=== PATIENT | female | born 1955 | race Caucasian/White ===

== ENCOUNTER 2021-02-14 10:23 | Outpatient (REF) | payer MEDICARE, SELFPAY ==
[2021-02-14 11:33] LABS: Alanine Aminotransferase 19 U/L (0-31); Albumin Level 4.2 g/dL (3.5-5.0); Alkaline Phosphatase 81 U/L (39-117); Aspartate Amino Transferase 20 U/L (5-31); Bilirubin Direct < 0.2 mg/dL (0.0-0.5); Bilirubin Total 0.4 mg/dL (0.0-1.0); Cholesterol 170 mg/dL; HDL Cholesterol 41 mg/dL; LDL Cholesterol Calculated 81 mg/dl; Total Protein 6.5 g/dL (6.5-8.0); Triglycerides 244 mg/dL
[2021-02-14 12:15] LABS: Anion Gap 15 (12-20); Blood Urea Nitrogen 15 mg/dL (9-16); Calcium 9.5 mg/dL (8.4-10.2); Carbon Dioxide 27 mmol/L (22-29); Chloride 106 mmol/L (96-108); Estimated Glomerular Filt Rate > 60; Glucose Fasting 104 mg/dL (60-99); Potassium 4.9 mmol/L (3.3-5.1); Sodium 143 mmol/L (135-145)
[2021-02-14 12:36] LABS: Vitamin D 25-OH Total 125.7 ng/mL (>30)
[2021-02-14 13:11] LABS: Reflex LDLD? No
== END 2021-02-14 10:24 | disposition home or self-care (01) ==
LOC: HO.LNP 10:23
PROVIDERS: Visit Provider Internal Medicine
DX: E78.00 Pure hypercholesterolemia, unspecified (principal); D72.820 Lymphocytosis (symptomatic); I10 Essential (primary) hypertension; E55.9 Vitamin D deficiency, unspecified
CPT/HCPCS: 80053; 80061; 80076; 82248; 82306

== ENCOUNTER 2021-02-16 10:40 | Outpatient (REF) | payer MEDICARE, SELFPAY ==
[2021-02-16 10:44] LABS: MANUAL DIFF FLAG NO
[2021-02-16 10:55] LABS: Basophils Percent Auto 0.4 % (0-2); Eosinophils Absolute Auto 0.2 X10*3/uL (0.0-0.4); Hematocrit 38.3 % (37-47); Hemoglobin 12.7 g/dl (12.0-16.0); Imm Gran Abs Auto 0.01 X10*3/uL (0.00-0.03); Imm Gran Pct Auto 0.2 % (0.0-0.4); Lymphocytes Absolute Auto 1.8 X10*3/uL (1.2-4.9); Lymphocytes Percent Auto 37.7 % (20-40); Mean Corpuscular HGB Conc 33.2 g/dl (31.0-35.0); Mean Corpuscular Hemoglobin 32.1 pg (27.0-33.0); Mean Corpuscular Volume 96.7 fL (80-98); Mean Platelet Volume 10.2 fL (9.4-12.3); Monocytes Absolute Auto 0.5 X10*3/uL (0.1-1.2); Monocytes Percent Auto 10.4 % (2-11); Neutrophils Absolute Auto 2.2 X10*3/uL (2.0-8.3); Neutrophils Percent Auto 46.3 % (45-73); Platelet Count 226 X10*3/uL (160-400); Red Blood Count 3.96 X10*6/uL (4.20-5.50); Red Cell Distribution Width 12.1 % (11.0-16.0); White Blood Count 4.8 X10*3/uL (4.8-10.8)
== END 2021-02-16 10:41 | disposition home or self-care (01) ==
LOC: HO.LNP 10:40
PROVIDERS: Visit Provider Internal Medicine
DX: D72.820 Lymphocytosis (symptomatic) (principal)
CPT/HCPCS: 85025

== ENCOUNTER 2021-10-27 10:34 | Outpatient (REF) | payer MEDICARE, SELFPAY ==
[2021-10-27 10:39] LABS: MANUAL DIFF FLAG NO
[2021-10-27 11:14] LABS: Appearance Urine CLEAR; Color Urine YELLOW; Glucose Urine UA NEG (NEG); Leukocyte Esterase Urine NEG (NEG); Nitrite Urine NEG (NEG); PH 5.5 (5.0-8.0); Specific Gravity - Urine >= 1.030 (1.005-1.025); Urine Blood NEG (NEG); Urine Ketones NEG (NEG); Urine Protein NEG (NEG-TRACE)
[2021-10-27 11:16] LABS: Basophils Percent Auto 0.7 % (0-2); Eosinophils Absolute Auto 0.4 X10*3/uL (0.0-0.4); Eosinophils Percent Auto 6.7 % (0-4); Hemoglobin 13.3 g/dl (12.0-16.0); Imm Gran Abs Auto 0.01 X10*3/uL (0.00-0.03); Imm Gran Pct Auto 0.2 % (0.0-0.4); Lymphocytes Absolute Auto 2.7 X10*3/uL (1.2-4.9); Lymphocytes Percent Auto 49.9 % (20-40); Mean Corpuscular HGB Conc 33.3 g/dl (31.0-35.0); Mean Corpuscular Hemoglobin 33.4 pg (27.0-33.0); Mean Corpuscular Volume 100.5 fL (80.0-98.0); Mean Platelet Volume 10.3 fL (9.4-12.3); Monocytes Absolute Auto 0.6 X10*3/uL (0.1-1.2); Monocytes Percent Auto 10.7 % (2-11); Neutrophils Absolute Auto 1.7 x10*3/uL (2.0-8.3); Neutrophils Percent Auto 31.8 % (45-73); Platelet Count 247 X10*3/uL (160-400); Red Blood Count 3.98 X10*6/uL (4.20-5.50); Red Cell Distribution Width 12.5 % (11.0-16.0); White Blood Count 5.5 X10*3/uL (4.8-10.8)
[2021-10-27 11:22] LABS: Alanine Aminotransferase 14 U/L (0-31); Albumin Level 4.2 g/dL (3.5-5.0); Alkaline Phosphatase 89 U/L (39-117); Anion Gap 11 (12-20); Aspartate Amino Transferase 18 U/L (5-31); Bilirubin Total 0.4 mg/dL (0.0-1.0); Blood Urea Nitrogen 17 mg/dL (9-16); Calcium 9.7 mg/dL (8.4-10.2); Carbon Dioxide 30 mmol/L (22-29); Chloride 104 mmol/L (96-108); Cholesterol 147 mg/dL; Estimated Glomerular Filt Rate > 60; Glucose Fasting 105 mg/dL (60-99); HDL Cholesterol 39 mg/dL; LDL Cholesterol Calculated 77 mg/dl; Potassium 4.7 mmol/L (3.3-5.1); Sodium 140 mmol/L (135-145); Total Protein 6.4 g/dL (6.5-8.0); Triglycerides 157 mg/dL
[2021-10-27 11:37] LABS: Bacteria Urine 1+ /LPF; Squamous Epithelial Cell Urine 1+ /LPF
[2021-10-27 11:38] LABS: RBC Urine 0 /HPF (0); WBC Urine 0-2 /HPF (0-4)
[2021-10-27 11:43] LABS: Vitamin D 25-OH Total 112.8 ng/mL (>30)
== END 2021-10-27 10:35 | disposition home or self-care (01) ==
LOC: HO.LNP 10:34
PROVIDERS: Visit Provider Internal Medicine
DX: Z00.00 Encounter for general adult medical examination without abnormal findings (principal); E78.00 Pure hypercholesterolemia, unspecified; D72.820 Lymphocytosis (symptomatic); E55.9 Vitamin D deficiency, unspecified; I10 Essential (primary) hypertension
CPT/HCPCS: 80053; 80061; 81001; 82306; 85025

== ENCOUNTER 2022-02-05 11:33 | Outpatient (REF) | payer MEDICARE, SELFPAY ==
[2022-02-05 11:35] LABS: MANUAL DIFF FLAG NO
[2022-02-05 12:10] LABS: Basophils Absolute Auto 0.1 X10*3/uL (0.0-0.2); Basophils Percent Auto 0.8 % (0-2); Eosinophils Absolute Auto 0.4 X10*3/uL (0.0-0.4); Eosinophils Percent Auto 7.1 % (0-4); Hematocrit 41.1 % (37.0-47.0); Hemoglobin 13.7 g/dl (12.0-16.0); Imm Gran Abs Auto 0.01 X10*3/uL (0.00-0.03); Imm Gran Pct Auto 0.2 % (0.0-0.4); Lymphocytes Absolute Auto 3.2 X10*3/uL (1.2-4.9); Lymphocytes Percent Auto 50.6 % (20-40); Mean Corpuscular HGB Conc 33.3 g/dl (31.0-35.0); Mean Corpuscular Hemoglobin 32.5 pg (27.0-33.0); Mean Corpuscular Volume 97.6 fL (80.0-98.0); Mean Platelet Volume 10.9 fL (9.4-12.3); Monocytes Absolute Auto 0.6 X10*3/uL (0.1-1.2); NRBC Pct Auto 0.5 /100WBC (0.0-0.2); Neutrophils Percent Auto 32.3 % (45-73); Platelet Count 240 X10*3/uL (160-400); Red Blood Count 4.21 X10*6/uL (4.20-5.50); Red Cell Distribution Width 12.6 % (11.0-16.0); White Blood Count 6.2 X10*3/uL (4.8-10.8)
[2022-02-05 12:37] LABS: Vitamin D 25-OH Total 82.6 ng/mL (>30)
== END 2022-02-05 11:34 | disposition home or self-care (01) ==
LOC: HO.LNP 11:33
PROVIDERS: Visit Provider Internal Medicine
DX: E55.9 Vitamin D deficiency, unspecified (principal); D72.820 Lymphocytosis (symptomatic)
CPT/HCPCS: 82306; 85025

== ENCOUNTER 2022-11-27 11:09 | Outpatient (REF) | payer MEDICARE, SELFPAY ==
[2022-11-27 11:12] LABS: MANUAL DIFF FLAG NO
[2022-11-27 11:27] LABS: Appearance Urine Clear; Color Urine Yellow; Glucose Urine UA Negative (Negative); Leukocyte Esterase Urine Negative (Negative); Nitrite Urine Negative (Negative); PH 5.5 (5.0-9.0); Specific Gravity - Urine 1.015 (1.005-1.025); UMIC TRIGGER UACC YES; Urine Blood Trace (Negative); Urine Ketones Negative (Negative); Urine Protein Negative (Neg-Trace)
[2022-11-27 11:28] LABS: Basophils Absolute Auto 0.1 X10*3/uL (0.0-0.2); Basophils Percent Auto 0.9 % (0-2); Eosinophils Absolute Auto 0.6 X10*3/uL (0.0-0.4); Eosinophils Percent Auto 7.7 % (0-4); Hematocrit 40.9 % (37.0-47.0); Hemoglobin 12.9 g/dl (12.0-16.0); Imm Gran Abs Auto 0.02 X10*3/uL (0.00-0.03); Imm Gran Pct Auto 0.3 % (0.0-0.4); Lymphocytes Absolute Auto 2.9 X10*3/uL (1.2-4.9); Lymphocytes Percent Auto 38.8 % (20-40); Mean Corpuscular HGB Conc 31.5 g/dl (31.0-35.0); Mean Corpuscular Hemoglobin 30.4 pg (27.0-33.0); Mean Corpuscular Volume 96.2 fL (80.0-98.0); Mean Platelet Volume 10.5 fL (9.4-12.3); Monocytes Absolute Auto 0.9 X10*3/uL (0.1-1.2); Monocytes Percent Auto 12.4 % (2-11); Neutrophils Percent Auto 39.9 % (45-73); Platelet Count 270 X10*3/uL (160-400); Red Blood Count 4.25 X10*6/uL (4.20-5.50); Red Cell Distribution Width 13.7 % (11.0-16.0); White Blood Count 7.4 X10*3/uL (4.8-10.8)
[2022-11-27 11:30] LABS: Bacteria Urine None Seen (None Seen); Hyaline Casts Urine 0-2 /LPF (0-2); RBC Urine 0-2 /HPF (0-2); Squamous Epithelial Cell Urine 0-2 /HPF (0-2); WBC Urine 0-5 /HPF (0-5)
[2022-11-27 11:43] LABS: Alanine Aminotransferase 14 U/L (0-31); Alkaline Phosphatase 128 U/L (39-117); Anion Gap 11 (12-20); Aspartate Amino Transferase 17 U/L (5-31); Bilirubin Total 0.5 mg/dL (0.0-1.0); Blood Urea Nitrogen 18 mg/dL (9-16); Calcium 9.2 mg/dL (8.4-10.2); Carbon Dioxide 29 mmol/L (22-29); Chloride 105 mmol/L (96-108); Cholesterol 166 mg/dL; Estimated Glomerular Filt Rate > 60; Glucose Fasting 104 mg/dL (60-99); HDL Cholesterol 40 mg/dL; LDL Cholesterol Calculated 70 mg/dl; Potassium 4.6 mmol/L (3.3-5.1); Sodium 140 mmol/L (135-145); Total Protein 6.9 g/dL (6.5-8.0); Triglycerides 280 mg/dL
== END 2022-11-27 11:10 | disposition home or self-care (01) ==
LOC: HO.LNP 11:09
PROVIDERS: Visit Provider Internal Medicine
DX: Z00.00 Encounter for general adult medical examination without abnormal findings (principal); E78.00 Pure hypercholesterolemia, unspecified; I10 Essential (primary) hypertension; D72.820 Lymphocytosis (symptomatic)
CPT/HCPCS: 80053; 80061; 81001; 85025

== ENCOUNTER → 2023-02-07 07:38 | Outpatient (REF) | payer MEDICARE, SELFPAY ==
--- NOTE | 2023-02-07 | CA_ITS ---
Acquisition Time: 2023-02-07 07:53:33 Total Exercise Time: 00:06:09 Test Indications: Dyspnea Medications: OMEPRAZOLE PROPRANOLOL ATORVASTATIN ESCITALOPRAM Protocol: ENRIQUE Max HR: 166 BPM 109% of Pred: 151 BPM Max BP: 144/078 mmHG Max Work Load: 7.2 METS Exercise stress test exercise 6 min 9 sec of Enrique protocol achieving 102% MPHR without anginal symptoms, with PVCs in pretest and recovery, with normotensive response to exercise, without EKG chnages. Test reiewed with Dr. Centeno Referred By: Reji Fountain Overread By: Soraida Bocanegra
== END ==
LOC: HO.CARD 07:38
PROVIDERS: PCP Internal Medicine; Visit Provider Internal Medicine
DX: R06.02 Shortness of breath (principal)
CPT/HCPCS: 93017

== ENCOUNTER → 2023-02-07 07:53 | Outpatient (BNV) | payer MEDICARE, SELFPAY | PROVIDERS: PCP Internal Medicine; Visit Provider Nurse Practitioner | DX: R06.09 Other forms of dyspnea (principal) | CPT/HCPCS: 93016; 93018 ==

== ENCOUNTER 2023-02-20 07:36 | Outpatient (REF) | payer MEDICARE, SELFPAY ==
--- NOTE | ~2023-02-20 | FL_ITS ---
EXAMINATION: XR FLUOROSCOPY UPPER GI WITH AIR CLINICAL INFORMATION: Patient complaining of food getting stuck in region of hypopharynx episodically. COMPARISON: None available. TECHNIQUE: Fluoroscopic air-contrast upper GI examination was performed utilizing standard technique with thin and thick barium as well as effervescent granules. Numerous fluoroscopic spot images were obtained. FINDINGS: Imaging of the oropharynx and hypopharynx during swallow demonstrates no evidence of laryngeal penetration or aspiration. There was mild pooling in the vallecula which cleared upon subsequent swallows. No definite mass is identified within the hypopharynx. A moderate size Zenker's diverticulum is noted projecting off the posterior aspect of the most upper esophagus at the C6-7 level, in which barium pooled consistently. The esophagus has a normal caliber without evidence of stricture or mass lesion. Mucosal pattern was normal aside from episodic feline fold pattern, which was transient. On image 9 of 24 on series 3, in the mid to distal anterior esophagus, a small rounded filling defect is felt to represent artifact from effervescent granules. It did not appear to persist. Esophageal peristalsis was somewhat disordered, with primary propulsive contraction followed by numerous tertiary nonpropulsive contractions consistent with presbyesophagus. A moderate-sized type I hiatus hernia is present at the GE junction. Episodic spontaneous gastroesophageal reflux is identified at numerous points throughout the exam to the level of the justin. Dual contrast and single column contrast images of the stomach demonstrated normal contour without evidence of mass or gastric fold thickening. No delay of contrast passage into the duodenum. 2 sequential ventral images demonstrate possible small gastric ulcerations within the posterior body. Unknown if this represents artifact. The duodenal bulb has a normal appearance. The duodenal sweep demonstrates a tiny superior diverticulum in the fourth segment. The proximal jejunum has a normal fold pattern and caliber. Incidentally noted is a marked dextroconvex thoracolumbar scoliosis. FLUOROSCOPY TIME: 4.5 minutes. 44 spot images obtained. DOSE : 162.968 mGy FL/FL upper GI w air IMPRESSION: 1. Small to moderate-sized Zenker's diverticulum at the C6-C7 level. No evidence of laryngeal penetration or aspiration. 2. Feline esophagus noted, which can be associated with reflux. Episodic gastroesophageal reflux noted throughout the examination to the level of the justin. Esophagus otherwise grossly normal aside from moderate presbyesophagus. 3. Moderate-sized sliding hiatus hernia. 4. Possible small ulcerations in the posterior body of the stomach. Erosive gastritis is a consideration. No additional stomach abnormality. 5. Essentially normal duodenal bulb, duodenal sweep, and proximal small bowel.
== END 2023-02-20 07:37 | disposition home or self-care (01) ==
LOC: HO.XRAY 07:36
PROVIDERS: PCP Internal Medicine; Visit Provider Internal Medicine
DX: R13.10 Dysphagia, unspecified (principal)
CPT/HCPCS: 74240; 74246

== ENCOUNTER → 2023-02-20 07:37 | Outpatient (BNV) | payer MEDICARE, SELFPAY | PROVIDERS: PCP Internal Medicine; Visit Provider Radiology Diagnostic Radiology | DX: R13.10 Dysphagia, unspecified (principal) | CPT/HCPCS: 74246 ==

== ENCOUNTER 2023-04-12 14:20 | Emergency (ER) | payer MEDICARE, SELFPAY ==
--- NOTE | ~2023-04-12 | XR_ITS ---
EXAMINATION: XR HAND, LEFT CLINICAL INFORMATION: Left ring finger pain. COMPARISON: None available. TECHNIQUE: PA, lateral, and oblique views of the left hand. FINDINGS: Mildly displaced comminuted fracture of the distal tuft distal phalanx of ring finger. No dislocation. XR/XR hand LT min 3V IMPRESSION: Mildly displaced comminuted fracture of the distal tuft distal phalanx of ring finger.
--- NOTE | ~2023-04-12 | CT_ITS ---
EXAMINATION: CT HEAD WITHOUT CONTRAST CT FACIAL BONES WITHOUT CONTRAST CT CERVICAL SPINE WITHOUT CONTRAST CLINICAL INFORMATION: Fall. Head and face strike. Neck pain. COMPARISON: None available. TECHNIQUE: Imaging was performed from the skull base to vertex without intravenous administration of contrast. In addition, helical noncontrast CT imaging was acquired through the cervical spine and facial bones and source images were reviewed along with axial reconstructions and sagittal and coronal MPRs. This CT examination was performed using dose optimization techniques as appropriate, variously including the following: *Automated exposure control. *Adjustment of mA and/or kV according to patient size (this includes techniques or standardized protocols for targeted exams where dose is matched to indication/reason for exam; i.e. extremities or head). *Use of iterative reconstruction technique. DLP: 1299 mGy-cm FINDINGS: Head: There is no evidence of acute intracranial hemorrhage or edematous territorial infarction. Antoine-white matter differentiation is preserved. Scattered and partially confluent hypoattenuation in the periventricular and deep white matter are consistent with moderate microangiopathy. Proportional prominence of the ventricles and sulcal spaces without evidence of obstructive hydrocephalus. No abnormal mass effect or midline shift. No extra-axial fluid collections. Moderate laceration and subgaleal hematoma along the right aspect of the frontal bone, measuring up to 0.4 cm in depth. No associated acute osseous calvarial abnormalities. Maxillofacial Bones: No evidence of maxillofacial bone fractures. The zygomatic arches remain intact. No nasal bone fracture. The nasal septum remains midline. No evidence of mandibular or maxillary fracture. The mandibular condyles remain well-seated in their respective temporal articular grooves. Mild degenerative arthropathy of the temporomandibular joints bilaterally. Normal appearance of the intraconal and extraconal fat. No evidence of traumatic injury to the extraocular musculature or globes. Complete opacification of the right maxillary sinus. Moderate mucosal thickening of the left maxillary sinus. Hyperattenuating material centrally within the maxillary sinuses. Mild mucosal thickening of the remaining paranasal sinuses. No layering fluid collections. Cervical Spine: The atlantooccipital and atlantoaxial articulations remain well aligned. Moderate degenerative arthropathy of the atlantodental articulation. Straightening of the normal cervical lordosis. Otherwise, there is anatomic alignment of the vertebral bodies and posterior elements. No evidence of acute fracture or subluxation. The vertebral body heights are maintained. Advanced degenerative disc disease at C5-C6. Moderate degenerative disc disease at all additional cervical levels. Facet and uncovertebral joint arthropathy leads to osseous encroachment on the neural foramina from C3-C7. There is no prevertebral soft tissue swelling. There is a mucous and gas filled pouch posterior to the esophagus at the level of C5-C7 suggestive of a Zenker's diverticulum, measuring 2.3 x 1.3 x 2.5 cm. The thyroid gland and remaining cervical soft tissues are within normal limits. The lung apices demonstrate no abnormalities. CT/CT cervical spine wo IV con IMPRESSION: 1. No evidence of acute intracranial hemorrhage or edematous territorial infarction. Moderate underlying microangiopathy and generalized cerebral volume loss. 2. No evidence of acute fracture or traumatic subluxation of the cervical spine. Moderate multilevel degenerative spondyloarthropathy of the cervical spine. 3. No evidence of acute fracture of the maxillofacial bones. 4. Right frontal scalp laceration/hematoma without associated osseous calvarial abnormalities. 5. Prominent right-sided and moderate left-sided maxillary sinus disease. Hyperattenuating material within the maxillary sinuses suggestive of chronically inspissated mucus versus sequela of allergic fungal colonization. 6. Zenker's diverticulum.
--- NOTE | ~2023-04-12 | XR_ITS ---
EXAMINATION: XR CHEST CLINICAL INFORMATION: Fall. Chest trauma. COMPARISON: None available. TECHNIQUE: Frontal view of the chest was obtained. 6:17 PM FINDINGS: Lungs are clear. No pulmonary vascular congestion. There is no pleural effusion. The heart size is normal. The cardiac and mediastinal contours are normal. Dextroscoliosis thoracolumbar spine with multilevel degenerative spondylosis. Orthopedic plate and screw over right proximal humerus. XR/XR chest 1V IMPRESSION: Unremarkable examination.
[2023-04-12 14:39] VITALS: BP 130/90; PULSE 90; O2SAT 96; BMI 26.4
[2023-04-12 14:50] VITALS: BP 146/80; PULSE 77; RESP 16; TEMP 37; O2SAT 95
[2023-04-12 14:51] VITALS: BMI 30.3
--- NOTE | 2023-04-12 15:35 | ECG_ITS ---
Test Reason : FALL Blood Pressure : / mmHG Vent. Rate : 077 BPM Atrial Rate : 077 BPM P-R Int : 132 ms QRS Dur : 098 ms QT Int : 392 ms P-R-T Axes : 023 -33 -04 degrees QTc Int : 443 ms Normal sinus rhythm Nonspecific T wave abnormality Left anterior fascicular block Intra-ventricular conduction delay Abnormal ECG No previous ECGs available Referred By: Ladan Olivia Electronically Signed By:LYUDMILA RICO MD
--- NOTE | 2023-04-12 15:40 | ED_ITS ---
HPI - Fall General Chief Complaint: Fall Stated Complaint: fall Time Seen by Provider: 04/12/23 15:00 Source: patient and EMS Mode of arrival: EMS Limitations: no limitations History of Present Illness HPI Narrative: This is a 67 yo f no significant pmhx presenting s/p trip and fall patient states she tripped on a dog bed falling forward, and hitting her face on the ground. Patient reports she also hit her finger on something while she fell she is complaining of left ring finger pain. Patient denies loss of consciousness with fall, not on blood thinners. Patient does state that she has a large laceration to her the right side of her forehead. She came in by ambulance and was collared out of precaution. Patient denies headache, vision changes, dizziness, weakness, nausea, vomiting, chest pain or shortness breath. No preceding symptoms to fall. Related Data Previous Rx's Medication Instructions Recorded cephalexin 500 mg tablet 500 mg PO Q6H 10 days #40 tabs 04/12/23 Allergies Allergy/AdvReac Type Severity Reaction Status Date / Time No Known Allergies Allergy Unverified 03/10/20 16:55 [No Known Allergies*] Review of Systems 2 Review of Systems: Constitutional : No Weight loss, No Fever, No Chills, No Fatigue, No Malaise ENT/Mouth : No sore throat, No Rhinorrhea Eyes: No Eye Pain, No Swelling, No Redness Cardiovascular : No Chest Pain, No SOB, No Dyspnea on Exertion, No Orthopnea, No Edema, No Palpitations Respiratory : No Cough, No Sputum, No Wheezing Gastrointestinal : No Nausea, No Vomiting, No Diarrhea, No Constipation, No abdominal Pain, No Hematochezia, No Melena Genitourinary : No Dysuria, No Urinary Frequency, No Hematuria, Musculoskeletal : + joint pain, No Myalgias, + Joint Swelling Skin : No Skin Lesions, No rash, + laceration Neuro : No Weakness, No Numbness, No Dizziness, No Headache Psych : No Anxiety/Panic, No Depression All other systems reviewed and are negative Yes all other systems are reviewed and are negative [facility]LY [facility] Past Medical History Attestation statement: The following information was validated with the patient. Source: old records reviewed and nursing notes reviewed Social History Social History Advance Directives: No Advance Directives Information Provided: No Physical Exam 2 Vital Signs: Vital Signs: Last Vital Signs Temp 98.6 F 04/12/23 14:50 Pulse 77 04/12/23 14:50 Resp 16 04/12/23 14:50 BP 146/80 H 04/12/23 14:50 Pulse Ox 95 04/12/23 14:50 O2 Del Method Room Air 04/12/23 14:50 BMI result Body Mass Index 30.3 vss Appearance: Alert.? Oriented X3.? No acute distress.? Head: Normocephalic, atraumatic, no step-offs or deformities + linear laceration to the right aspect of patient's forehead measuring approximately 6 cm, no foreign bodies visualized. No signs of skull fractures, no depressions. Eyes: Pupils equal, round and reactive to light.? ENT: Pharynx normal.? Neck: Normal inspection.? Neck supple.? CVS: Normal heart rate and rhythm.? Pulses normal.? Respiratory: No respiratory distress.? Breath sounds normal.? Abdomen: Soft and nontender.? Skin: Skin warm and dry.? Normal skin color.? Normal skin turgor.? Extremities: No lower extremity edema.? No calf ttp. 5/5 strength to bilateral upper and lower extremities patient has ecchymosis to the distal aspect of left ring finger on the fat pad. 2+ radial pulses equal bilateral. Normal capillary refill to all upper extremity digits less than 2 seconds. Full range of motion to all fingers, painless. Back: No midline tenderness, no C-spine tenderness, full range of motion, no CVA tenderness bilaterally Neuro: Oriented X 3.? No motor deficit.? No sensory deficit. CN 2-12 intact Course Reevaluation(s) Reevaluation #1: Patient's laceration was closed with 9 simple interrupted sutures 6 -0 , area was anesthetized with lidocaine, no complications. Imaging pending. Labs and troponin pending. Sign-out to Linda RUIZ Time: 16:44 Reevaluation #2: CT scans negative for any acute processes. left hand x-ray shows mildly displaced fracture of the distal tuft of distal phalanx of ring finger. Body tape. Patient will be sent home Medications Administered Discontinued Medications Generic Name Dose Route Start Last Admin Trade Name Freq PRN Reason Stop Dose Admin Diphtheria/Tetanus/Acell Pertussis 0.5 ml 04/12/23 15:35 04/12/23 16:42 Diphth,Pertus(Acell),Tet Adult 0.5 Ml Syringe IM 04/12/23 15:36 0.5 ml .ONCE ONE Administration Lidocaine HCl 20 ml 04/12/23 15:39 04/12/23 16:42 Lidocaine Hcl 2 % Mpf 5 Ml Vial SUBCUT 04/12/23 15:40 20 ml ONCE ONE Administration Medical Decision Making Medical Decision Making [facility] Narrative: 1543 67-year-old female presents status post trip and fall complaining laceration to head and left ring finger pain. Physical exam with large laceration to the right aspect of forehead, and left ring finger with distal ecchymosis. History and physical exam concerning for concussion without loss of consciousness, low suspicion for intracranial hemorrhage, stroke or posterior stroke. Unlikely skull fracture facial fractures however will rule out with imaging. No point tenderness to cervical spine unlikely cervical spine fracture, dislocation or traumatic subluxations. No signs of cervical myelopathy. Left finger likely sprain or strain will rule out fracture dislocation however. No signs of neurovascular compromise or threat to Abbasi. Will rule out electrolyte derangements and anemia. Will also obtain an EKG and troponin to rule out ACS as positive agent although patient denies chest pain and shortness of breath prior to fall PE and ACS Unlikely Plan- imaging, labs, ekg, trop Differential Diagnosis Differential Diagnoses: The differential diagnosis associated with the presentation includes History and physical exam concerning for concussion without loss of consciousness, low suspicion for intracranial hemorrhage, stroke or posterior stroke. Unlikely skull fracture facial fractures however will rule out with imaging. No point tenderness to cervical spine unlikely cervical spine fracture, dislocation or traumatic subluxations. No signs of cervical myelopathy. Left finger likely sprain or strain will rule out fracture dislocation however. No signs of neurovascular compromise or threat to Abbasi. Will rule out electrolyte derangements and anemia. Will also obtain an EKG and troponin to rule out ACS as positive agent although patient denies chest pain and shortness of breath prior to fall PE and ACS Unlikely Admission/Observation Consideration of admission/observation: Escalation of care including admission/observation considered Lab Data [facility] Lab Attestation statement: I reviewed the patient's lab results. 04/12/23 17:05 04/12/23 17:05 Labs: Lab Results 04/12/23 04/12/23 04/12/23 Range/Units 17:05 17:05 17:05 WBC 8.8 (4.8-10.8) X10*3/uL RBC 4.00 L (4.20-5.50) X10*6/uL Hgb 13.0 (12.0-16.0) g/dl Hct 38.3 (37.0-47.0) % MCV 95.8 (80.0-98.0) fL MCH 32.5 (27.0-33.0) pg MCHC 33.9 (31.0-35.0) g/dl RDW 12.8 (11.0-16.0) % Plt Count 225 (160-400) X10*3/uL MPV 10.0 (9.4-12.3) fL Immature Gran % (Auto) 0.2 (0.0-0.4) % Neut % (Auto) 69.6 (45-73) % Lymph % (Auto) 20.3 (20-40) % [place] % (Auto) 6.1 (2-11) % Eos % (Auto) 3.2 (0-4) % Baso % (Auto) 0.6 (0-2) % Lymph # (Auto) 1.8 (1.2-4.9) X10*3/uL [place] # (Auto) 0.5 (0.1-1.2) X10*3/uL Eos # (Auto) 0.3 (0.0-0.4) X10*3/uL Baso # (Auto) 0.1 (0.0-0.2) X10*3/uL Abs Immat Gran (auto) 0.02 (0.00-0.03) X10*3/uL Absolute Neuts (auto) 6.1 (2.0-8.3) x10*3/uL Absolute Nucleated RBC 0.000 (0.0-0.012) X10*3/uL Nucleated RBC % (auto) 0.0 (0.0-0.2) /100WBC Sodium 139 138 (135-145) mmol/L Potassium 4.1 4.1 (3.3-5.1) mmol/L Chloride 105 (96-108) mmol/L Carbon Dioxide (22-29) mmol/L Anion Gap (12-20) BUN (9-16) mg/dL Creatinine (0.5-1.4) mg/dL Estim Creat Clear Calc Estimated GFR Random Glucose (60-115) mg/dL Calcium (8.4-10.2) mg/dL Magnesium (1.6-2.6) mg/dL Total Bilirubin (0.0-1.0) mg/dL AST (5-31) U/L ALT (0-31) U/L Alkaline Phosphatase (39-117) U/L Troponin I High Sens (<3.5-17.0) ng/L Total Protein (6.5-8.0) g/dL Albumin (3.5-5.0) g/dL 04/12/23 04/12/23 04/12/23 Range/Units 17:05 17:05 17:05 WBC (4.8-10.8) X10*3/uL RBC (4.20-5.50) X10*6/uL Hgb (12.0-16.0) g/dl Hct (37.0-47.0) % MCV (80.0-98.0) fL MCH (27.0-33.0) pg MCHC (31.0-35.0) g/dl RDW (11.0-16.0) % Plt Count (160-400) X10*3/uL MPV (9.4-12.3) fL Immature Gran % (Auto) (0.0-0.4) % Neut % (Auto) (45-73) % Lymph % (Auto) (20-40) % [place] % (Auto) (2-11) % Eos % (Auto) (0-4) % Baso % (Auto) (0-2) % Lymph # (Auto) (1.2-4.9) X10*3/uL [place] # (Auto) (0.1-1.2) X10*3/uL Eos # (Auto) (0.0-0.4) X10*3/uL Baso # (Auto) (0.0-0.2) X10*3/uL Abs Immat Gran (auto) (0.00-0.03) X10*3/uL Absolute Neuts (auto) (2.0-8.3) x10*3/uL Absolute Nucleated RBC (0.0-0.012) X10*3/uL Nucleated RBC % (auto) (0.0-0.2) /100WBC Sodium (135-145) mmol/L Potassium (3.3-5.1) mmol/L Chloride 106 (96-108) mmol/L Carbon Dioxide 23 22 (22-29) mmol/L Anion Gap 15 14 (12-20) BUN 18 H (9-16) mg/dL Creatinine (0.5-1.4) mg/dL Estim Creat Clear Calc Estimated GFR Random Glucose (60-115) mg/dL Calcium (8.4-10.2) mg/dL Magnesium (1.6-2.6) mg/dL Total Bilirubin (0.0-1.0) mg/dL AST (5-31) U/L ALT (0-31) U/L Alkaline Phosphatase (39-117) U/L Troponin I High Sens (<3.5-17.0) ng/L Total Protein (6.5-8.0) g/dL Albumin (3.5-5.0) g/dL 04/12/23 04/12/23 04/12/23 Range/Units 17:05 17:05 17:05 WBC (4.8-10.8) X10*3/uL RBC (4.20-5.50) X10*6/uL Hgb (12.0-16.0) g/dl Hct (37.0-47.0) % MCV (80.0-98.0) fL MCH (27.0-33.0) pg MCHC (31.0-35.0) g/dl RDW (11.0-16.0) % Plt Count (160-400) X10*3/uL MPV (9.4-12.3) fL Immature Gran % (Auto) (0.0-0.4) % Neut % (Auto) (45-73) % Lymph % (Auto) (20-40) % [place] % (Auto) (2-11) % Eos % (Auto) (0-4) % Baso % (Auto) (0-2) % Lymph # (Auto) (1.2-4.9) X10*3/uL [place] # (Auto) (0.1-1.2) X10*3/uL Eos # (Auto) (0.0-0.4) X10*3/uL Baso # (Auto) (0.0-0.2) X10*3/uL Abs Immat Gran (auto) (0.00-0.03) X10*3/uL Absolute Neuts (auto) (2.0-8.3) x10*3/uL Absolute Nucleated RBC (0.0-0.012) X10*3/uL Nucleated RBC % (auto) (0.0-0.2) /100WBC Sodium (135-145) mmol/L Potassium (3.3-5.1) mmol/L Chloride (96-108) mmol/L Carbon Dioxide (22-29) mmol/L Anion Gap (12-20) BUN 18 H (9-16) mg/dL Creatinine 0.77 0.78 (0.5-1.4) mg/dL Estim Creat Clear Calc 62.9 62.1 Estimated GFR > 60 Random Glucose (60-115) mg/dL Calcium (8.4-10.2) mg/dL Magnesium (1.6-2.6) mg/dL Total Bilirubin (0.0-1.0) mg/dL AST (5-31) U/L ALT (0-31) U/L Alkaline Phosphatase (39-117) U/L Troponin I High Sens (<3.5-17.0) ng/L Total Protein (6.5-8.0) g/dL Albumin (3.5-5.0) g/dL 04/12/23 04/12/23 04/12/23 Range/Units 17:05 17:05 17:05 WBC (4.8-10.8) X10*3/uL RBC (4.20-5.50) X10*6/uL Hgb (12.0-16.0) g/dl Hct (37.0-47.0) % MCV (80.0-98.0) fL MCH (27.0-33.0) pg MCHC (31.0-35.0) g/dl RDW (11.0-16.0) % Plt Count (160-400) X10*3/uL MPV (9.4-12.3) fL Immature Gran % (Auto) (0.0-0.4) % Neut % (Auto) (45-73) % Lymph % (Auto) (20-40) % [place] % (Auto) (2-11) % Eos % (Auto) (0-4) % Baso % (Auto) (0-2) % Lymph # (Auto) (1.2-4.9) X10*3/uL [place] # (Auto) (0.1-1.2) X10*3/uL Eos # (Auto) (0.0-0.4) X10*3/uL Baso # (Auto) (0.0-0.2) X10*3/uL Abs Immat Gran (auto) (0.00-0.03) X10*3/uL Absolute Neuts (auto) (2.0-8.3) x10*3/uL Absolute Nucleated RBC (0.0-0.012) X10*3/uL Nucleated RBC % (auto) (0.0-0.2) /100WBC Sodium (135-145) mmol/L Potassium (3.3-5.1) mmol/L Chloride (96-108) mmol/L Carbon Dioxide (22-29) mmol/L Anion Gap (12-20) BUN (9-16) mg/dL Creatinine (0.5-1.4) mg/dL Estim Creat Clear Calc Estimated GFR > 60 Random Glucose 133 H 133 H (60-115) mg/dL Calcium 9.8 D 9.9 (8.4-10.2) mg/dL Magnesium 2.0 (1.6-2.6) mg/dL Total Bilirubin 0.6 (0.0-1.0) mg/dL AST (5-31) U/L ALT (0-31) U/L Alkaline Phosphatase (39-117) U/L Troponin I High Sens (<3.5-17.0) ng/L Total Protein (6.5-8.0) g/dL Albumin (3.5-5.0) g/dL 04/12/23 04/12/23 04/12/23 Range/Units 17:05 17:05 17:05 WBC (4.8-10.8) X10*3/uL RBC (4.20-5.50) X10*6/uL Hgb (12.0-16.0) g/dl Hct (37.0-47.0) % MCV (80.0-98.0) fL MCH (27.0-33.0) pg MCHC (31.0-35.0) g/dl RDW (11.0-16.0) % Plt Count (160-400) X10*3/uL MPV (9.4-12.3) fL Immature Gran % (Auto) (0.0-0.4) % Neut % (Auto) (45-73) % Lymph % (Auto) (20-40) % [place] % (Auto) (2-11) % Eos % (Auto) (0-4) % Baso % (Auto) (0-2) % Lymph # (Auto) (1.2-4.9) X10*3/uL [place] # (Auto) (0.1-1.2) X10*3/uL Eos # (Auto) (0.0-0.4) X10*3/uL Baso # (Auto) (0.0-0.2) X10*3/uL Abs Immat Gran (auto) (0.00-0.03) X10*3/uL Absolute Neuts (auto) (2.0-8.3) x10*3/uL Absolute Nucleated RBC (0.0-0.012) X10*3/uL Nucleated RBC % (auto) (0.0-0.2) /100WBC Sodium (135-145) mmol/L Potassium (3.3-5.1) mmol/L Chloride (96-108) mmol/L Carbon Dioxide (22-29) mmol/L Anion Gap (12-20) BUN (9-16) mg/dL Creatinine (0.5-1.4) mg/dL Estim Creat Clear Calc Estimated GFR Random Glucose (60-115) mg/dL Calcium (8.4-10.2) mg/dL Magnesium (1.6-2.6) mg/dL Total Bilirubin 0.6 (0.0-1.0) mg/dL AST 16 16 (5-31) U/L ALT 11 11 (0-31) U/L Alkaline Phosphatase 92 (39-117) U/L Troponin I High Sens (<3.5-17.0) ng/L Total Protein (6.5-8.0) g/dL Albumin (3.5-5.0) g/dL 04/12/23 04/12/23 04/12/23 Range/Units 17:05 17:05 17:05 WBC (4.8-10.8) X10*3/uL RBC (4.20-5.50) X10*6/uL Hgb (12.0-16.0) g/dl Hct (37.0-47.0) % MCV (80.0-98.0) fL MCH (27.0-33.0) pg MCHC (31.0-35.0) g/dl RDW (11.0-16.0) % Plt Count (160-400) X10*3/uL MPV (9.4-12.3) fL Immature Gran % (Auto) (0.0-0.4) % Neut % (Auto) (45-73) % Lymph % (Auto) (20-40) % [place] % (Auto) (2-11) % Eos % (Auto) (0-4) % Baso % (Auto) (0-2) % Lymph # (Auto) (1.2-4.9) X10*3/uL [place] # (Auto) (0.1-1.2) X10*3/uL Eos # (Auto) (0.0-0.4) X10*3/uL Baso # (Auto) (0.0-0.2) X10*3/uL Abs Immat Gran (auto) (0.00-0.03) X10*3/uL Absolute Neuts (auto) (2.0-8.3) x10*3/uL Absolute Nucleated RBC (0.0-0.012) X10*3/uL Nucleated RBC % (auto) (0.0-0.2) /100WBC Sodium (135-145) mmol/L Potassium (3.3-5.1) mmol/L Chloride (96-108) mmol/L Carbon Dioxide (22-29) mmol/L Anion Gap (12-20) BUN (9-16) mg/dL Creatinine (0.5-1.4) mg/dL Estim Creat Clear Calc Estimated GFR Random Glucose (60-115) mg/dL Calcium (8.4-10.2) mg/dL Magnesium (1.6-2.6) mg/dL Total Bilirubin (0.0-1.0) mg/dL AST (5-31) U/L ALT (0-31) U/L Alkaline Phosphatase 90 (39-117) U/L Troponin I High Sens < 2.7 (<3.5-17.0) ng/L Total Protein 6.9 7.0 (6.5-8.0) g/dL Albumin 4.1 4.2 (3.5-5.0) g/dL Independent Interpretation I performed an independent interpretation of an: EKG, Plain X-Ray and CT Scan Radiology Impression Discussion of test interpretation with radiology: I have reviewed the radiologist's reading. Radiologist Impression: Hand x-ray FINDINGS: Mildly displaced comminuted fracture of the distal tuft distal phalanx of ring finger. No dislocation. XR/XR hand LT min 3V IMPRESSION: Mildly displaced comminuted fracture of the distal tuft distal phalanx of ring finger. CT SCAN OF THE FACE, HEAD, CERVICAL SPINE IMPRESSION: 1. No evidence of acute intracranial hemorrhage or edematous territorial infarction. Moderate underlying microangiopathy and generalized cerebral volume loss. 2. No evidence of acute fracture or traumatic subluxation of the cervical spine. Moderate multilevel degenerative spondyloarthropathy of the cervical spine. 3. No evidence of acute fracture of the maxillofacial bones. 4. Right frontal scalp laceration/hematoma without associated osseous calvarial abnormalities. 5. Prominent right-sided and moderate left-sided maxillary sinus disease. Hyperattenuating material within the maxillary sinuses suggestive of chronically inspissated mucus versus sequela of allergic fungal colonization. 6. Zenker's diverticulum. Independent Historian Clinical information obtained from an independent historian. History obtained from or confirmed by: Friend Critical Care Time Critical Care Time Critical Care Time: No Discharge Plan Discharge Clinical Impression: Concussion without loss of consciousness, Fall, Laceration of head, Finger pain, left Patient Disposition: Home, Self-Care Instructions: Laceration (ED), Concussion (ED), Post Concussion Syndrome (ED), Arthralgia (ED), Fall Prevention (ED) Additional Instructions: Take your medications as prescribed. If you were prescribed antibiotics today, it is important that you take your medication to their entirety, do not skip any doses, do not finish them early. Follow-up with your primary care provider this week. Return to the emergency department with new or worsening symptoms. Such as fevers, chills, chest pain, shortness of breath, nausea, vomiting, dizziness, headache, vision changes, lethargy In case of emergency call 911 Return in 5 days for suture removal Prescriptions: New cephalexin 500 mg tablet 500 mg PO Q6H 10 Days Qty: 40 0RF Referrals: Reji Fountain MD [Primary Care Provider] - 2 days Stand Alone Forms: Work/School Release
[2023-04-12] MEDS: Diphth,Pertus(ACell),Tet Adult 0.5 ML SYRINGE IM (16:42)
[2023-04-12] MEDS: Lidocaine HCl 2 % MPF 5 ML VIAL 20 ML SUBCUT (16:42)
[2023-04-12 17:10] LABS: MANUAL DIFF FLAG NO
[2023-04-12 17:11] LABS: Basophils Absolute Auto 0.1 X10*3/uL (0.0-0.2); Basophils Percent Auto 0.6 % (0-2); Eosinophils Absolute Auto 0.3 X10*3/uL (0.0-0.4); Eosinophils Percent Auto 3.2 % (0-4); Hematocrit 38.3 % (37.0-47.0); Imm Gran Abs Auto 0.02 X10*3/uL (0.00-0.03); Imm Gran Pct Auto 0.2 % (0.0-0.4); Lymphocytes Absolute Auto 1.8 X10*3/uL (1.2-4.9); Lymphocytes Percent Auto 20.3 % (20-40); Mean Corpuscular HGB Conc 33.9 g/dl (31.0-35.0); Mean Corpuscular Hemoglobin 32.5 pg (27.0-33.0); Mean Corpuscular Volume 95.8 fL (80.0-98.0); Monocytes Absolute Auto 0.5 X10*3/uL (0.1-1.2); Monocytes Percent Auto 6.1 % (2-11); Neutrophils Absolute Auto 6.1 x10*3/uL (2.0-8.3); Neutrophils Percent Auto 69.6 % (45-73); Platelet Count 225 X10*3/uL (160-400); Red Cell Distribution Width 12.8 % (11.0-16.0); White Blood Count 8.8 X10*3/uL (4.8-10.8)
[2023-04-12 17:28] LABS: Alanine Aminotransferase 11 U/L (0-31); Albumin Level 4.1 g/dL (3.5-5.0); Alkaline Phosphatase 92 U/L (39-117); Anion Gap 15 (12-20); Aspartate Amino Transferase 16 U/L (5-31); Bilirubin Total 0.6 mg/dL (0.0-1.0); Blood Urea Nitrogen 18 mg/dL (9-16); Calcium 9.8 mg/dL (8.4-10.2); Carbon Dioxide 23 mmol/L (22-29); Chloride 105 mmol/L (96-108); Creatinine Clr Calc Pharmacy 62.9; Estimated Glomerular Filt Rate > 60; Glucose Random 133 mg/dL (60-115); Potassium 4.1 mmol/L (3.3-5.1); Sodium 139 mmol/L (135-145); Total Protein 6.9 g/dL (6.5-8.0)
[2023-04-12 17:29] LABS: Alanine Aminotransferase 11 U/L (0-31); Albumin Level 4.2 g/dL (3.5-5.0); Alkaline Phosphatase 90 U/L (39-117); Anion Gap 14 (12-20); Aspartate Amino Transferase 16 U/L (5-31); Bilirubin Total 0.6 mg/dL (0.0-1.0); Blood Urea Nitrogen 18 mg/dL (9-16); Calcium 9.9 mg/dL (8.4-10.2); Carbon Dioxide 22 mmol/L (22-29); Chloride 106 mmol/L (96-108); Creatinine Clr Calc Pharmacy 62.1; Estimated Glomerular Filt Rate > 60; Glucose Random 133 mg/dL (60-115); Potassium 4.1 mmol/L (3.3-5.1); Sodium 138 mmol/L (135-145)
[2023-04-12 17:46] LABS: Troponin-I High Sensitivity < 2.7 ng/L (<3.5-17.0)
== END 2023-04-12 19:54 | disposition home or self-care (01) ==
PROVIDERS: Physician Assistant; Emergency Provider Emergency Medicine; PCP Internal Medicine
DX: S06.0X0A Concussion without loss of consciousness, initial encounter (principal); S01.91XA Laceration without foreign body of unspecified part of head, initial encounter; S00.81XA Abrasion of other part of head, initial encounter; M79.642 Pain in left hand; R51.9 Headache, unspecified; M54.2 Cervicalgia; R07.89 Other chest pain; W01.10XA Fall on same level from slipping, tripping and stumbling with subsequent striking against unspecified object, initial encounter; Y93.9 Activity, unspecified; Y92.9 Unspecified place or not applicable; Y99.9 Unspecified external cause status; Z23 Encounter for immunization; Z79.899 Other long term (current) drug therapy
CPT/HCPCS: 12013; 36415; 70450; 70486; 71045; 72125; 73130; 80053; 83735; 84484; 85025; 90471; 90715; 93005; 99283; 99284

== ENCOUNTER 2023-04-18 09:34 | Outpatient (AMB) | payer MEDICARE, SELFPAY ==
[2023-04-18 09:47] VITALS: BP 124/82; PULSE 82; TEMP 36.6; O2SAT 94; BMI 29.4
--- NOTE | 2023-04-18 09:47 | A.OFFVIS_ITS ---
Intake Vital Signs 04/18/23 09:47 Height 5 ft 1 in Weight 155 lb 6 oz BMI 29.4 BP 124/82 Blood Pressure Location Lt brachial Position Sitting Pulse 82 Pulse Source Pulse Oximeter Temp 97.9 F Temp Source Temporal Artery Scan Pulse Oximetry (%) 94 Oxygen Delivery Method Room Air Intake Visit Reasons: EST/stitch removal located on forehead Intake Note: Pt presents to the office today for c/o stitch removal on forehead. Pt states the stitches were placed by [facility] on Saturday04/12/23. Allergies No Known Allergies [No Known Allergies*] Allergy (Unverified 04/18/23 09:49) HPI HPI Comments History of Present Illness Details 67-year-old female here for suture remov al PFSH Family History (Updated 04/18/23 @ 09:50 by Indira Mauricio MA) Father Hypertension Social History (Updated 04/18/23 @ 09:50 by Indira Mauricio MA) Household Members: Friend(s) Housing: House Alcohol intake: current Alcohol intake frequency: holidays/special occasions only Patient Tobacco Use Status: Never used Tobacco Review of Systems Skin/Breast Details: laceration to the forehead Physical Exam Vital Signs: Last Vital Signs Temp 97.9 F 04/18/23 09:47 Pulse 82 04/18/23 09:47 BP 124/82 04/18/23 09:47 Pulse Ox 94 04/18/23 09:47 Oxygen Delivery Method Room Air 04/18/23 09:47 BMI result Body Mass Index 29.4 Const General: cooperative, healthy appearing, no acute distress and alert Orientation/consciousness: patient oriented x3 Limitations: no limitations HEENT Head: Yes normal to inspection Ears: hearing grossly normal bilaterally General nose exam: Normal external nose present Resp Effort & Inspection: normal respiratory effort and able to speak in complete sentences Cardio Rate: regular rate Skin Other: Nine sutures on the right side of the forehead wound with no erythema or drainage well approximated General skin exam: no rashes or lesions noted Neuro General: patient oriented x3 Extrem General: Yes normal to inspection Assessment & Plan Assessment & Plan (1) Visit for suture removal: Code(s): Z48.02 - Encounter for removal of sutures Plan: Nine sutures removed. No evidence of infection per Discharge instructions, follow up and treatment are discussed with patient in my usual fashion. Alternatives in treatment are also discussed. The patient will return for worsening symptoms or as needed. Advised that any labs/imaging ordered will be followed up on and contact made if further treatment needed. Counseled that patient's condition may require further evaluation and/or treatment. Symptoms of concern for worsening disorder discussed in detail in my customary manner. Patient does verbalize understanding of the plan, there are no apparent barriers to communication. The patient is given the opportunity to ask questions and have them answered to his/her satisfaction Coding Level of Care Code Est Pt Level 2 (22814) Diagnoses Visit for suture removal Z48.02
== END 2023-04-18 10:21 | disposition home or self-care (01) ==
PROVIDERS: PCP Internal Medicine; Visit Provider Physician Assistant
DX: Z48.02 Encounter for removal of sutures (principal)
CPT/HCPCS: 15853; 99212

== ENCOUNTER 2024-03-02 11:09 | Outpatient (REF) | payer MEDICARE, SELFPAY ==
[2024-03-02 11:15] LABS: MANUAL DIFF FLAG NO
[2024-03-02 11:22] LABS: Basophils Absolute Auto 0.1 X10*3/uL (0.0-0.2); Basophils Percent Auto 0.8 % (0-2); Eosinophils Absolute Auto 0.5 X10*3/uL (0.0-0.4); Eosinophils Percent Auto 8.6 % (0-4); Hematocrit 39.3 % (37.0-47.0); Hemoglobin 13.2 g/dl (12.0-16.0); Imm Gran Abs Auto 0.02 X10*3/uL (0.00-0.03); Imm Gran Pct Auto 0.3 % (0.0-0.4); Lymphocytes Absolute Auto 2.6 X10*3/uL (1.2-4.9); Lymphocytes Percent Auto 43.4 % (20-40); Mean Corpuscular HGB Conc 33.6 g/dl (31.0-35.0); Mean Corpuscular Hemoglobin 33.5 pg (27.0-33.0); Mean Corpuscular Volume 99.7 fL (80.0-98.0); Mean Platelet Volume 10.3 fL (9.4-12.3); Monocytes Absolute Auto 0.7 X10*3/uL (0.1-1.2); Monocytes Percent Auto 11.6 % (2-11); Neutrophils Absolute Auto 2.1 x10*3/uL (2.0-8.3); Neutrophils Percent Auto 35.3 % (45-73); Platelet Count 237 X10*3/uL (160-400); Red Blood Count 3.94 X10*6/uL (4.20-5.50); Red Cell Distribution Width 12.7 % (11.0-16.0); White Blood Count 5.9 X10*3/uL (4.8-10.8)
[2024-03-02 12:01] LABS: Alanine Aminotransferase 16 U/L (0-31); Albumin Level 4.1 g/dL (3.5-5.0); Alkaline Phosphatase 90 U/L (39-117); Anion Gap 15 (12-20); Aspartate Amino Transferase 18 U/L (5-31); Bilirubin Total 0.4 mg/dL (0.0-1.0); Blood Urea Nitrogen 18 mg/dL (9-16); Calcium 9.4 mg/dL (8.4-10.2); Carbon Dioxide 27 mmol/L (22-29); Chloride 107 mmol/L (96-108); Cholesterol 159 mg/dL (<200); Estimated Glomerular Filt Rate > 60; Glucose Fasting 111 mg/dL (60-99); HDL Cholesterol 40 mg/dL (>40); LDL Cholesterol Calculated 75 mg/dL (<100); Potassium 4.8 mmol/L (3.3-5.1); Sodium 144 mmol/L (135-145); Total Protein 6.8 g/dL (6.5-8.0); Triglycerides 224 mg/dL (<150); Vitamin D 25-OH Total 111.9 ng/mL (>30)
== END 2024-03-02 11:10 | disposition home or self-care (01) ==
LOC: HO.LNP 11:09
PROVIDERS: Visit Provider Internal Medicine
DX: Z00.00 Encounter for general adult medical examination without abnormal findings (principal); E55.9 Vitamin D deficiency, unspecified; E78.00 Pure hypercholesterolemia, unspecified; D72.820 Lymphocytosis (symptomatic)
CPT/HCPCS: 80053; 80061; 82306; 85025

== ENCOUNTER 2024-03-17 16:25 | Outpatient (REF) | payer MEDICARE, SELFPAY ==
[2024-03-17 19:10] LABS: Appearance Urine Clear; Color Urine Yellow; Glucose Urine UA Negative (Negative); Leukocyte Esterase Urine Trace (Negative); Nitrite Urine Negative (Negative); PH 5.5 (5.0-9.0); Specific Gravity - Urine 1.015 (1.005-1.025); UMIC TRIGGER UACC YES; Urine Blood Negative (Negative); Urine Ketones Negative (Negative); Urine Protein Negative (Neg-Trace)
[2024-03-17 19:14] LABS: Bacteria Urine None Seen (None Seen); RBC Urine 0-2 /HPF (0-2); WBC Urine 0-5 /HPF (0-5)
== END 2024-03-17 16:26 | disposition home or self-care (01) ==
LOC: HO.LNP 16:25
PROVIDERS: Visit Provider Internal Medicine
DX: E78.00 Pure hypercholesterolemia, unspecified (principal); I10 Essential (primary) hypertension
CPT/HCPCS: 81001